=== PATIENT | male | born 1975 | race American Indian/Alaskan Native ===

== ENCOUNTER 2020-09-19 17:20 | Inpatient (IN) | payer OTHER ==
[2020-09-19 17:58] LABS: Basophils # (Auto) 0.1 K/mm3 (0.0-0.1); Basophils % (Auto) 0.7 % (0.0-1.8); Hematocrit 49.7 % (35.5-45.6); Hemoglobin 15.8 gm/dl (11.8-15.2); Lymphocytes # (Auto) 1.2 K/mm3 (1.2-5.4); Lymphocytes % (Auto) 11.4 % (13.4-35.0); Mean Corpuscular HGB Conc 32 % (32-34); Monocytes # (Auto) 0.4 K/mm3 (0.0-0.8); Monocytes % (Auto) 3.5 % (0.0-7.3); Red Blood Count 7.92 M/mm3 (3.65-5.03); Red Cell Distribution Width 16.5 % (13.2-15.2)
--- NOTE | 2020-09-19 17:58 | Emergency Department Report ---
Blank Doc - Documentation Documentation: This is a 45-year-old male that presents with generalized weakness, increased thirst and urination. 1- This initial assessment/diagnostic orders/clinical plan/ treatment(s) is/are subject to change based on pt's health status, clinical progression and re- assessment by fellow clinical providers in the ED. Further treatment and workup at subsequent clinical provers discretion. Patient/guardians urged not to elope from ED as their condition may be serious if not clinically assessed and managed. 2-EKG due to tachycardia 3-labs 4-UA
[2020-09-19 18:03] LABS: Mean Corpuscular Volume 63 fl (84-94)
[2020-09-19 18:15] LABS: Albumin 5.4 g/dL (3.9-5); Calcium 11.1 mg/dL (8.4-10.2)
[2020-09-19 18:43] LABS: Platelet Count 255 K/mm3 (140-440)
[2020-09-19] MEDS ORDERED: SODIUM CHLORIDE 0.9% 1000 ML 1,000 ML IV ONE ×3 (19:56→21:55)
[2020-09-19] MEDS ORDERED: INSULIN REGULAR, HUMAN 100 UNITS/1 ML IV ONE ×2 (19:56→21:47)
--- NOTE | 2020-09-19 21:06 | Emergency Department Report ---
ED General Adult HPI - General Chief complaint: Hyperglycemia Stated complaint: BLOOD SUGAR PROBLEM Time Seen by Provider: 09/19/20 17:42 Source: patient Mode of arrival: Ambulatory Limitations: No Limitations - History of Present Illness Initial comments: 45-year male with a past medical history of hypertension and ADHD presents to the hospital hyperglycemia and new onset diabetes. Patient states for the last 2 to 3 weeks he has been having increased thirst, increased urination, dry mouth, and fatigue. He went to a doctor today and his sugar read high on her glucometer. Patient denies a previous diagnosis of diabetes, fever, nausea, vomiting, or abdominal pain. He has been compliant with his blood pressure medications that include amlodipine, a diuretic that starts with "C", Adderall, and Wellbutrin Pt shared with hospitalist that he has been on metformin in past but discontinued due to a recall that he saw on TV. I reinterviewed patient and hestates that he was put on Metformin for "prediabetes". He stopped taking the medication 3 months ago Severity scale (0 -10): 0 - Related Data Allergies Allergy/AdvReac Type Severity Reaction Status Date / Time No Known Allergies Allergy Unverified 09/19/20 17:38 ED Review of Systems ROS: Stated complaint: BLOOD SUGAR PROBLEM Other details as noted in HPI Comment: All other systems reviewed and negative ED Past Medical Hx - Past Medical History Previous Medical History?: Yes Hx Hypertension: Yes Additional medical history: adhd - Surgical History Past Surgical History?: No - Social History Smoking Status: Never Smoker Substance Use Type: None ED Physical Exam - General Limitations: No Limitations - Other Other exam information: General: No acute distress Head: Atraumatic Eyes: normal appearance Neck: Normal appearance, no midline tenderness Chest: Clear to auscultation bilaterally CV: Tachycardic regular rate Abdomen: Soft, normal bowel sounds, nontender, nondistended, no rebound or guarding Back: Normal inspection Extremity: Normal inspection, full range of motion Neuro: Alert O x 3, no facial asymmetry, speech clear, no gross motor sensory deficit Psych: Appropriate behavior Skin: No rash ED Course Vital Signs 09/19/20 09/19/20 09/19/20 17:38 20:08 20:15 Temperature 98.8 F Pulse Rate 122 H 109 H Respiratory 20 25 H Rate Blood Pressure 151/107 Blood Pressure [Right] O2 Sat by Pulse 99 98 99 Oximetry 09/19/20 09/19/20 09/19/20 20:20 20:22 20:31 Temperature 98.1 F Pulse Rate 109 H 109 H Respiratory 26 H 26 H 22 Rate Blood Pressure 156/91 Blood Pressure 156/91 [Right] O2 Sat by Pulse 99 99 96 Oximetry 09/19/20 09/19/20 09/19/20 20:45 21:01 21:15 Temperature Pulse Rate 107 H 105 H 103 H Respiratory 26 H 19 30 H Rate Blood Pressure 156/91 152/79 152/79 Blood Pressure [Right] O2 Sat by Pulse 98 97 96 Oximetry 09/19/20 09/19/20 21:31 21:42 Temperature Pulse Rate 106 H 103 H Respiratory 12 30 H Rate Blood Pressure 123/76 Blood Pressure 152/79 [Right] O2 Sat by Pulse 99 96 Oximetry ED Medical Decision Making - Lab Data Result diagrams: 09/19/20 17:45 09/19/20 17:45 Lab Results 09/19/20 09/19/20 09/19/20 Range/Units 17:39 17:45 17:45 WBC 10.5 (4.5-11.0) K/mm3 RBC 7.92 H (3.65-5.03) M/mm3 Hgb 15.8 H (11.8-15.2) gm/dl Hct 49.7 H (35.5-45.6) % MCV 63 L (84-94) fl MCH 20 L (28-32) pg MCHC 32 (32-34) % RDW 16.5 H (13.2-15.2) % Plt Count 255 (140-440) K/mm3 Lymph % (Auto) 11.4 L (13.4-35.0) % [place] % (Auto) 3.5 (0.0-7.3) % Eos % (Auto) 0.0 (0.0-4.3) % Baso % (Auto) 0.7 (0.0-1.8) % Lymph # (Auto) 1.2 (1.2-5.4) K/mm3 [place] # (Auto) 0.4 (0.0-0.8) K/mm3 Eos # (Auto) 0.0 (0.0-0.4) K/mm3 Baso # (Auto) 0.1 (0.0-0.1) K/mm3 Seg Neutrophils % 84.4 H (40.0-70.0) % Seg Neutrophils # 8.9 H (1.8-7.7) K/mm3 VBG pH (7.320-7.420) Sodium 134 L (137-145) mmol/L Potassium 5.3 H (3.6-5.0) mmol/L Chloride 88.7 L (98-107) mmol/L Carbon Dioxide 17 L (22-30) mmol/L Anion Gap 34 mmol/L BUN 31 H (9-20) mg/dL Creatinine 1.7 H (0.8-1.3) mg/dL Estimated GFR 44 ml/min BUN/Creatinine Ratio 18 % Glucose 912 H* (75-100) mg/dL POC Glucose > 600 H (70-105) mg/dL Calcium 11.1 H (8.4-10.2) mg/dL Total Bilirubin 1.30 H (0.1-1.2) mg/dL AST 19 (5-40) units/L ALT 52 (7-56) units/L Alkaline Phosphatase 145 H (35-129) units/L Total Protein 8.7 H (6.3-8.2) g/dL Albumin 5.4 H (3.9-5) g/dL Albumin/Globulin Ratio 1.6 % Urine Color (Yellow) Urine Turbidity (Clear) Urine pH (5.0-7.0) Ur Specific [place] (1.003-1.030) Urine Protein (Negative) mg/dL Urine Glucose (UA) (Negative) mg/dL Urine Ketones (Negative) mg/dL Urine Blood (Negative) Urine Nitrite (Negative) Urine Bilirubin (Negative) Urine Urobilinogen (<2.0) mg/dL Ur Leukocyte Esterase (Negative) Urine WBC (Auto) (0.0-6.0) /HPF Urine RBC (Auto) (0.0-6.0) /HPF 09/19/20 09/19/20 Range/Units 17:45 Unknown WBC (4.5-11.0) K/mm3 RBC (3.65-5.03) M/mm3 Hgb (11.8-15.2) gm/dl Hct (35.5-45.6) % MCV (84-94) fl MCH (28-32) pg MCHC (32-34) % RDW (13.2-15.2) % Plt Count (140-440) K/mm3 Lymph % (Auto) (13.4-35.0) % [place] % (Auto) (0.0-7.3) % Eos % (Auto) (0.0-4.3) % Baso % (Auto) (0.0-1.8) % Lymph # (Auto) (1.2-5.4) K/mm3 [place] # (Auto) (0.0-0.8) K/mm3 Eos # (Auto) (0.0-0.4) K/mm3 Baso # (Auto) (0.0-0.1) K/mm3 Seg Neutrophils % (40.0-70.0) % Seg Neutrophils # (1.8-7.7) K/mm3 VBG pH 7.347 (7.320-7.420) Sodium (137-145) mmol/L Potassium (3.6-5.0) mmol/L Chloride (98-107) mmol/L Carbon Dioxide (22-30) mmol/L Anion Gap mmol/L BUN (9-20) mg/dL Creatinine (0.8-1.3) mg/dL Estimated GFR ml/min BUN/Creatinine Ratio % Glucose (75-100) mg/dL POC Glucose (70-105) mg/dL Calcium (8.4-10.2) mg/dL Total Bilirubin (0.1-1.2) mg/dL AST (5-40) units/L ALT (7-56) units/L Alkaline Phosphatase (35-129) units/L Total Protein (6.3-8.2) g/dL Albumin (3.9-5) g/dL Albumin/Globulin Ratio % Urine Color Straw (Yellow) Urine Turbidity Clear (Clear) Urine pH 5.0 (5.0-7.0) Ur Specific [place] 1.025 (1.003-1.030) Urine Protein <15 mg/dl (Negative) mg/dL Urine Glucose (UA) >=500 (Negative) mg/dL Urine Ketones 20 (Negative) mg/dL Urine Blood Neg (Negative) Urine Nitrite Neg (Negative) Urine Bilirubin Neg (Negative) Urine Urobilinogen < 2.0 (<2.0) mg/dL Ur Leukocyte Esterase Neg (Negative) Urine WBC (Auto) 1.0 (0.0-6.0) /HPF Urine RBC (Auto) 1.0 (0.0-6.0) /HPF - EKG Data -: EKG Interpreted by Me EKG shows normal: sinus rhythm, intervals (qtc 509) Rate: tachycardia (109) - Medical Decision Making 45-year-old male presents to the hospital with hyperglycemia and mild DKA. Patient has been noncompliant with his Metformin. Patient to ED with normal saline, insulin bolus with subsequent insulin drip. Patient also has renal sufficiency with no previous creatinine for comparison. Patient will be admitted to the hospital service for further treatment. Critical Care Time: Yes Critical care time in (mins) excluding proc time.: 35 Critical care attestation.: If time is entered above; I have spent that time in minutes in the direct care of this critically ill patient, excluding procedure time. ED Disposition Clinical Impression: Uncontrolled diabetes mellitus, DKA (diabetic ketoacidoses), Noncompliance with medication regimen, Chronic hypertension, Renal insufficiency Disposition: -09 OP ADMIT IP TO THIS HOSP Is pt being admited?: Yes Condition: Stable Instructions: Diabetes Mellitus Type 2 in Adults (ED), Diabetic Ketoacidosis (ED), Hypertension (ED) Time of Disposition: 22:40 (Dr Orellana/hospitalist)
[2020-09-19 21:45] LABS: Bilirubin,Urine NEG (Negative); Blood,Urine NEG (Negative); Color,Urine Straw (Yellow); Protein,Urine <15 mg/dL mg/dL (Negative); Urobilinogen,Urine < 2.0 mg/dL (<2.0)
[2020-09-19] MEDS ORDERED: DEXTROSE 50% IN WATER (25GM) 50 ML SYRINGE IV PRN (21:55)
[2020-09-19] MEDS: INSULIN REGULAR, HUMAN 100 UNITS in SODIUM CHLORIDE 0.9% 99 ML IV SCH (22:42)
[2020-09-19] MEDS ORDERED: ONDANSETRON 4 MG/2 ML INJ IV PRN (22:43)
[2020-09-19] MEDS ORDERED: MORPHINE 2 MG/1 ML INJ IV PRN (22:43)
[2020-09-19] MEDS ORDERED: SODIUM CHLORIDE 0.9% 1000 ML 1,000 ML IV SCH (22:45)
--- NOTE | 2020-09-19 22:54 | History and Physical Report ---
History of Present Illness Date of examination: 09/19/20 Date of admission: 09/19/2020 Chief complaint: Elevated Blood Glucose History of present illness: 5-year-old -[place] male with known history of hypertension and ADHD presents to the emergency room today complaining of elevated blood glucose and new onset diabetes mellitus. Indicates that he has been having increased thirst, increased frequency of urination, dry mouth and fatigue. He was seen by physician earlier in the day and his sugar was reading high on the glucometer. He has been diagnosed with borderline diabetes in the past and had been on Metformin at some point but discontinued taking the medication about 3 months ago because he felt the medication was recalled. He denies any nausea vomiting, no diarrhea, no chest pain or shortness of breath, no fever or chills, no headache or dizziness. Work-up in the emergency room today blood glucose was in the 900s. Patient also had anion gap. He was subsequently placed on IV fluid and insulin drip. Past History Past Medical History: hypertension, other (ADHD) Past Surgical History: No surgical history Social history: alcohol abuse (Occasional Alcohol intake) Family history: no significant family history Medications and Allergies Allergies Allergy/AdvReac Type Severity Reaction Status Date / Time No Known Allergies Allergy Unverified 09/19/20 17:38 Active Meds: Active Medications Dextrose (Dextrose 50% In Water (25gm) 50 Ml Syringe) 0 ml IV Q30MIN PRN; Protocol PRN Reason: Hypoglycemia Heparin Sodium (Porcine) (Heparin 5,000 Unit/1 Ml Vial) 5,000 unit SUB-Q Q8HR YA Insulin Human Regular 100 (units/ Sodium Chloride) 100 mls @ 1 mls/hr IV TITR YA; Protocol Sodium Chloride (Nacl 0.9% 1000 Ml) 1,000 mls @ 999 mls/hr IV BOLUS ONE Stop: 09/19/20 22:55 Sodium Chloride (Nacl 0.9% 1000 Ml) 1,000 mls @ 150 mls/hr IV DIRECT YA Potassium Chloride/Dextrose/Sod Cl (D5w/0.45% Nacl/Kcl 20 Meq) 20 meq in 1,000 mls @ 125 mls/hr IV DIRECT YA Morphine Sulfate (Morphine 2 Mg/1 Ml Inj) 2 mg IV Q4H PRN PRN Reason: Pain, Moderate (4-6) Ondansetron HCl (Ondansetron 4 Mg/2 Ml Inj) 4 mg IV Q8H PRN PRN Reason: Nausea And Vomiting Sodium Chloride (Sodium Chloride 0.9% 10 Ml Flush Syringe) 10 ml IV BID YA Sodium Chloride (Sodium Chloride 0.9% 10 Ml Flush Syringe) 10 ml IV PRN PRN PRN Reason: LINE FLUSH Review of Systems Constitutional: no fever, no chills Ears, nose, mouth and throat: no nasal congestion, no sore throat Cardiovascular: no chest pain, no palpitations Respiratory: no cough, no shortness of breath Gastrointestinal: no abdominal pain, no nausea, no vomiting, no diarrhea Genitourinary Male: no dysuria, no hematuria, no nocturia Musculoskeletal: no neck pain, no low back pain Integumentary: no rash, no pruritis Neurological: no headaches, no confusion Psychiatric: no anxiety, no depression Exam - Constitutional Vitals: Temp Pulse Resp BP Pulse Ox 98.1 F 103 H 30 H 152/79 96 09/19/20 20:20 09/19/20 21:42 09/19/20 21:42 09/19/20 21:42 09/19/20 21:42 General appearance: Present: no acute distress, well-nourished - EENT Eyes: Present: PERRL, EOM intact. Absent: scleral icterus ENT: hearing intact, clear oral mucosa, dentition normal - Neck Neck: Present: supple, normal ROM - Respiratory Respiratory effort: normal Respiratory: bilateral: CTA - Cardiovascular Rhythm: regular Heart Sounds: Present: S1 & S2. Absent: gallop, systolic murmur, diastolic murmur, rub, click - Extremities Extremities: no ischemia, pulses intact, pulses symmetrical, No edema, normal temperature, normal color, Full ROM Peripheral Pulses: within normal limits - Abdominal General gastrointestinal: Present: soft, non-tender, non-distended, normal bowel sounds. Absent: mass - Integumentary Integumentary: Present: clear, warm, dry. Absent: rash - Musculoskeletal Musculoskeletal: strength equal bilaterally - Psychiatric Psychiatric: appropriate mood/affect, intact judgment & insight, memory intact, cooperative - Neurologic Neurologic: CNII-XII intact, no focal deficits, moves all extremities Results - Labs CBC & Chem 7: 09/19/20 17:45 09/20/20 01:22 Labs: Abnormal lab results 09/19/20 09/19/20 09/19/20 Range/Units 17:39 17:45 17:45 RBC 7.92 H (3.65-5.03) M/mm3 Hgb 15.8 H (11.8-15.2) gm/dl Hct 49.7 H (35.5-45.6) % MCV 63 L (84-94) fl MCH 20 L (28-32) pg RDW 16.5 H (13.2-15.2) % Lymph % (Auto) 11.4 L (13.4-35.0) % Seg Neutrophils % 84.4 H (40.0-70.0) % Seg Neutrophils # 8.9 H (1.8-7.7) K/mm3 Sodium 134 L (137-145) mmol/L Potassium 5.3 H (3.6-5.0) mmol/L Chloride 88.7 L (98-107) mmol/L Carbon Dioxide 17 L (22-30) mmol/L BUN 31 H (9-20) mg/dL Creatinine 1.7 H (0.8-1.3) mg/dL Glucose 912 H* (75-100) mg/dL POC Glucose > 600 H (70-105) mg/dL Calcium 11.1 H (8.4-10.2) mg/dL Total Bilirubin 1.30 H (0.1-1.2) mg/dL Alkaline Phosphatase 145 H (35-129) units/L Total Protein 8.7 H (6.3-8.2) g/dL Albumin 5.4 H (3.9-5) g/dL Assessment and Plan - Patient Problems (1) DKA (diabetic ketoacidoses) Current Visit: Yes Status: Acute Plan to address problem: Patient admitted into the intensive care unit and placed on insulin drip and IV fluid according to protocol. We will monitor Accu-Cheks and chemistry closely. Patient will be given diabetic education. We will check hemoglobin A1c. (2) Hypertension Current Visit: Yes Status: Acute Plan to address problem: We will resume routine home medications once reconciled and monitor vital signs closely. Blood pressure stable meanwhile. (3) Renal insufficiency Current Visit: Yes Status: Acute Plan to address problem: Baseline creatinine unknown. We will continue IV fluid and also monitor BUN and creatinine. Consult placed to nephrology for evaluation. (4) DVT prophylaxis Current Visit: Yes Status: Acute Plan to address problem: Patient placed on subcutaneous heparin. (5) Full code status Current Visit: Yes Status: Acute Plan to address problem: Patient is a full code.
[2020-09-19] MEDS ORDERED: D5W/0.45% NACL/KCL 20 MEQ 20 MEQ/1,000 ML BAG IV SCH (23:00)
[2020-09-19 23:51] LABS: Calcium 9.9 mg/dL (8.4-10.2)
[2020-09-20 02:01] LABS: Chol/HDL Ratio 5.29 %
[2020-09-20 02:10] LABS: BUN/Creatinine Ratio 20; Blood Urea Nitrogen 26 mg/dL (9-20); Calcium 9.7 mg/dL (8.4-10.2); Hemolysis Index 3
[2020-09-20] MEDS: INSULIN REGULAR, HUMAN 100 UNITS in SODIUM CHLORIDE 0.9% 99 ML IV SCH ×2 (03:00→11:26)
[2020-09-20 04:54] LABS: BUN/Creatinine Ratio 18; Blood Urea Nitrogen 23 mg/dL (9-20); Calcium 9.3 mg/dL (8.4-10.2); Hemolysis Index 27
[2020-09-20] MEDS: HEPARIN 5,000 UNIT/1 ML VIAL SUB-Q SCH ×3 (06:08→22:01)
[2020-09-20 06:29] LABS: BUN/Creatinine Ratio 17; Blood Urea Nitrogen 22 mg/dL (9-20); Calcium 9.1 mg/dL (8.4-10.2); Hemolysis Index 22
[2020-09-20] MEDS ORDERED: DEXTROSE 50% IN WATER (25GM) 50 ML SYRINGE IV PRN ×2 (11:18→11:19)
--- NOTE | 2020-09-20 11:21 | Progress Note ---
Assessment and Plan Assessment and plan: DKA. Hypertension Acute kidney injury secondary to vasomotor nephropathy. DVT prophylaxis. 09/20/2020. Patient will be transition to long-acting insulin of units twice daily. Patient will be changed from D5 IV fluids to normal saline at 100 cc an hour. Acute kidney injury is improved with IV fluid hydration. Continue sliding scale regular insulin, Accu-Cheks and consistent carbohydrate diet initiated. History Interval history: No new issues overnight. Hospitalist Physical - Constitutional Vitals: Temp Pulse Resp BP Pulse Ox 98.6 F 76 22 117/66 96 09/19/20 23:05 09/20/20 08:04 09/20/20 08:00 09/20/20 08:00 09/20/20 08:00 General appearance: Present: no acute distress, well-nourished - EENT Eyes: Present: PERRL, EOM intact ENT: hearing intact, clear oral mucosa, dentition normal - Neck Neck: Present: supple, normal ROM - Respiratory Respiratory effort: normal Respiratory: bilateral: CTA - Cardiovascular Rhythm: regular Heart Sounds: Present: S1 & S2. Absent: gallop, rub - Extremities Extremities: no ischemia, No edema, Full ROM - Abdominal General gastrointestinal: soft, non-tender, non-distended, normal bowel sounds - Integumentary Integumentary: Present: clear, warm, dry - Neurologic Neurologic: CNII-XII intact, moves all extremities Results - Labs CBC & Chem 7: 09/19/20 17:45 09/20/20 06:00 Labs: Laboratory Last Values WBC 10.5 K/mm3 (4.5-11.0) 09/19/20 17:45 RBC 7.92 M/mm3 (3.65-5.03) H 09/19/20 17:45 Hgb 15.8 gm/dl (11.8-15.2) H 09/19/20 17:45 Hct 49.7 % (35.5-45.6) H 09/19/20 17:45 MCV 63 fl (84-94) L 09/19/20 17:45 MCH 20 pg (28-32) L 09/19/20 17:45 MCHC 32 % (32-34) 09/19/20 17:45 RDW 16.5 % (13.2-15.2) H 09/19/20 17:45 Plt Count 255 K/mm3 (140-440) 09/19/20 17:45 Lymph % (Auto) 11.4 % (13.4-35.0) L 09/19/20 17:45 [place] % (Auto) 3.5 % (0.0-7.3) 09/19/20 17:45 Eos % (Auto) 0.0 % (0.0-4.3) 09/19/20 17:45 Baso % (Auto) 0.7 % (0.0-1.8) 09/19/20 17:45 Lymph # (Auto) 1.2 K/mm3 (1.2-5.4) 09/19/20 17:45 [place] # (Auto) 0.4 K/mm3 (0.0-0.8) 09/19/20 17:45 Eos # (Auto) 0.0 K/mm3 (0.0-0.4) 09/19/20 17:45 Baso # (Auto) 0.1 K/mm3 (0.0-0.1) 09/19/20 17:45 Seg Neutrophils % 84.4 % (40.0-70.0) H 09/19/20 17:45 Seg Neutrophils # 8.9 K/mm3 (1.8-7.7) H 09/19/20 17:45 VBG pH 7.347 (7.320-7.420) 09/19/20 17:45 Sodium 145 mmol/L (137-145) 09/20/20 06:00 Potassium 4.4 mmol/L (3.6-5.0) 09/20/20 06:00 Chloride 107.9 mmol/L (98-107) H 09/20/20 06:00 Carbon Dioxide 31 mmol/L (22-30) H 09/20/20 06:00 Anion Gap 11 mmol/L 09/20/20 06:00 BUN 22 mg/dL (9-20) H 09/20/20 06:00 Creatinine 1.3 mg/dL (0.8-1.3) 09/20/20 06:00 Estimated GFR > 60 ml/min 09/20/20 06:00 BUN/Creatinine Ratio 17 % 09/20/20 06:00 Glucose 256 mg/dL (75-100) H 09/20/20 06:00 POC Glucose 248 mg/dL (70-105) H 09/20/20 08:23 Hemoglobin A1c 15.0 % (4-6) H 09/19/20 17:45 Calcium 9.1 mg/dL (8.4-10.2) 09/20/20 06:00 Phosphorus 5.50 mg/dL (2.5-4.5) H 09/19/20 22:51 Magnesium 2.80 mg/dL (1.7-2.3) H 09/19/20 22:51 Total Bilirubin 1.30 mg/dL (0.1-1.2) H 09/19/20 17:45 AST 19 units/L (5-40) 09/19/20 17:45 ALT 52 units/L (7-56) 09/19/20 17:45 Alkaline Phosphatase 145 units/L (35-129) H 09/19/20 17:45 Total Protein 8.7 g/dL (6.3-8.2) H 09/19/20 17:45 Albumin 5.4 g/dL (3.9-5) H 09/19/20 17:45 Albumin/Globulin Ratio 1.6 % 09/19/20 17:45 Triglycerides 287 mg/dL (2-149) H 09/19/20 22:51 Cholesterol 217 mg/dL (50-199) H 09/19/20 22:51 LDL Cholesterol Direct 147 mg/dL (50-130) H 09/19/20 22:51 HDL Cholesterol 41 mg/dL (40-59) 09/19/20 22:51 Cholesterol/HDL Ratio 5.29 % 09/19/20 22:51 Urine Color Straw (Yellow) 09/19/20 Unknown Urine Turbidity Clear (Clear) 09/19/20 Unknown Urine pH 5.0 (5.0-7.0) 09/19/20 Unknown Ur Specific [place] 1.025 (1.003-1.030) 09/19/20 Unknown Urine Protein <15 mg/dl mg/dL (Negative) 09/19/20 Unknown Urine Glucose (UA) >=500 mg/dL (Negative) 09/19/20 Unknown Urine Ketones 20 mg/dL (Negative) 09/19/20 Unknown Urine Blood Neg (Negative) 09/19/20 Unknown Urine Nitrite Neg (Negative) 09/19/20 Unknown Urine Bilirubin Neg (Negative) 09/19/20 Unknown Urine Urobilinogen < 2.0 mg/dL (<2.0) 09/19/20 Unknown Ur Leukocyte Esterase Neg (Negative) 09/19/20 Unknown Urine WBC (Auto) 1.0 /HPF (0.0-6.0) 09/19/20 Unknown Urine RBC (Auto) 1.0 /HPF (0.0-6.0) 09/19/20 Unknown Mcqueen/IV: IV Catheter Type [Left Forearm Peripheral IV ] Active Medications - Current Medications Current Medications: Generic Name Dose Route Start Last Admin Trade Name Freq PRN Reason Stop Dose Admin Dextrose 0 ml 09/19/20 21:55 Dextrose 50% In Water (25gm) 50 Ml Syringe IV Q30MIN PRN Hypoglycemia Protocol Heparin Sodium (Porcine) 5,000 unit 09/20/20 06:00 09/20/20 06:08 Heparin 5,000 Unit/1 Ml Vial SUB-Q Not Given Q8HR YA Insulin Human Regular 100 100 mls @ 1 mls/hr 09/19/20 22:00 09/20/20 10:30 units/ Sodium Chloride IV 7 units/hr TITR YA 7 mls/hr Titration Protocol 1 UNITS/HR Sodium Chloride 1,000 mls @ 150 mls/hr 09/19/20 22:45 09/19/20 23:50 Nacl 0.9% 1000 Ml IV 150 mls/hr DIRECT YA Administration Potassium Chloride/Dextrose/Sod Cl 20 meq in 1,000 mls @ 125 mls/hr 09/19/20 23:00 09/20/20 04:22 D5w/0.45% Nacl/Kcl 20 Meq IV 125 mls/hr DIRECT YA Administration Morphine Sulfate 2 mg 09/19/20 22:43 Morphine 2 Mg/1 Ml Inj IV Q4H PRN Pain, Moderate (4-6) Ondansetron HCl 4 mg 09/19/20 22:43 Ondansetron 4 Mg/2 Ml Inj IV Q8H PRN Nausea And Vomiting Sodium Chloride 10 ml 09/20/20 10:00 09/20/20 10:59 Sodium Chloride 0.9% 10 Ml Flush Syringe IV 10 ml BID YA Administration Sodium Chloride 10 ml 09/19/20 22:43 Sodium Chloride 0.9% 10 Ml Flush Syringe IV PRN PRN LINE FLUSH Nutrition/Malnutrition Assess - Dietary Evaluation Nutrition/Malnutrition Findings: Nutrition Notes Start: 09/20/20 11:00 Freq: Status: Active Protocol: Document 09/20/20 11:00 EN (Rec: 09/20/20 11:01 EN [id number]) Co-Sign 09/20/20 11:00 MK Nutrition Notes Need for Assessment generated from: MD Order,Education Initial or Follow up Brief Note Current Diagnosis Diabetes,Hypertension Other Pertinent Diagnosis DKA, Renal insufficiency Current Diet NPO Subjective/Other Information MD order for diet education and nutrition recommendations. Pt has new onset DM. Pt on hold in ED. Nutrition Intervention Anticipated Discharge Needs: Cardiac/Consistent CHO Follow-Up By: 09/23/20 Additional Comments F/u for assessment and DM diet education
--- NOTE | 2020-09-20 12:30 | Consultation ---
History of Present Illness Consult date: 09/20/20 Requesting physician: MILAGROS CASITLLO Reason for consult: other (Hyperglycemia on insulin) History of present illness: 5-year-old -[place] male with known history of hypertension and ADHD presents to the emergency room today complaining of elevated blood glucose and new onset diabetes mellitus. Indicates that he has been having increased thirst, increased frequency of urination, dry mouth and fatigue. He was seen by physician earlier in the day and his sugar was reading high on the glucometer. He has been diagnosed with borderline diabetes in the past and had been on Metformin at some point but discontinued taking the medication about 3 months ago because he felt the medication was recalled. He denies any nausea vomiting, no diarrhea, no chest pain or shortness of breath, no fever or chills, no headache or dizziness. Work-up in the emergency room today blood glucose was in the 900s. Patient also had anion gap. He was subsequently placed on IV fluid and insulin drip A critical care consult was placed for critical drip Prior to admission to the ICU, insulin infusion had been discontinued and patient downgraded to telemetry. Continue with all current care Past History Past Medical History: hypertension, other (ADHD) Past Surgical History: No surgical history Social history: alcohol abuse (Occasional Alcohol intake) Family history: no significant family history Medications and Allergies Allergies Allergy/AdvReac Type Severity Reaction Status Date / Time No Known Allergies Allergy Unverified 09/19/20 17:38 Home Medications Medication Instructions Recorded Confirmed Last Taken Type Chlorthalidone [Thalitone] 25 mg PO QDAY 09/20/20 09/20/20 2 Days Ago History ~09/18/20 Dextroamphetamine/Amphetamine 10 mg PO BID 09/20/20 09/20/20 2 Days Ago History [Dextroamp-Amphetamin 10 mg Tab] ~09/18/20 Omeprazole 10 mg PO BID 09/20/20 09/20/20 2 Days Ago History ~09/18/20 Insulin NPH/Regular [NovoLIN 70/30] 20 unit SUB-Q BIDDIAB 30 Days 09/21/20 Unknown Rx units amLODIPine 5 mg PO DAILY #30 09/21/20 Unknown Rx buPROPion [Wellbutrin] 75 mg PO BID #60 09/21/20 Unknown Rx metFORMIN [Glucophage] 500 mg PO BID #60 tablet 09/21/20 Unknown Rx Active Meds: Active Medications Dextrose (Dextrose 50% In Water (25gm) 50 Ml Syringe) 50 ml IV Q30MIN PRN; Protocol PRN Reason: Hypoglycemia Heparin Sodium (Porcine) (Heparin 5,000 Unit/1 Ml Vial) 5,000 unit SUB-Q Q8HR [facility] Last Admin: 09/20/20 06:08 Dose: Not Given Documented by: Sodium Chloride (Nacl 0.9% 1000 Ml) 1,000 mls @ 100 mls/hr IV DIRECT YA Insulin Human Isoph/Insulin Regular (Insulin Nph/Regular 70/30 Inj) 15 unit SUB-Q BIDDIAB YA Insulin Human Regular (Insulin Regular, Human 100 Units/1 Ml) 0 units SUB-Q ACHS YA; Protocol Morphine Sulfate (Morphine 2 Mg/1 Ml Inj) 2 mg IV Q4H PRN PRN Reason: Pain, Moderate (4-6) Ondansetron HCl (Ondansetron 4 Mg/2 Ml Inj) 4 mg IV Q8H PRN PRN Reason: Nausea And Vomiting Sodium Chloride (Sodium Chloride 0.9% 10 Ml Flush Syringe) 10 ml IV BID [facility] Last Admin: 09/20/20 10:59 Dose: 10 ml Documented by: Sodium Chloride (Sodium Chloride 0.9% 10 Ml Flush Syringe) 10 ml IV PRN PRN PRN Reason: LINE FLUSH Physical Examination Vital signs: Vital Signs Temp Pulse Resp BP Pulse Ox 98.8 F 122 H 20 151/107 99 09/19/20 17:38 09/19/20 17:38 09/19/20 17:38 09/19/20 17:38 09/19/20 17:38 General appearance: Present: no acute distress, well-nourished - EENT Eyes: Present: PERRL, EOM intact. Absent: scleral icterus ENT: hearing intact, clear oral mucosa, dentition normal - Neck Neck: Present: supple, normal ROM - Respiratory Respiratory effort: normal Respiratory: bilateral: CTA - Cardiovascular Rhythm: regular Heart Sounds: Present: S1 & S2. Absent: gallop, systolic murmur, diastolic murmur, rub, click - Extremities Extremities: no ischemia, pulses intact, pulses symmetrical, No edema, normal temperature, normal color, Full ROM Peripheral Pulses: within normal limits - Abdominal General gastrointestinal: Present: soft, non-tender, non-distended, normal bowel sounds. Absent: mass - Integumentary Integumentary: Present: clear, warm, dry. Absent: rash - Musculoskeletal Musculoskeletal: strength equal bilaterally - Psychiatric Psychiatric: appropriate mood/affect, intact judgment & insight, memory intact, cooperative - Neurologic Neurologic: CNII-XII intact, no focal deficits, moves all extremities Results - Laboratory Findings CBC and BMP: 09/19/20 17:45 09/21/20 08:48 Abnormal lab findings: Abnormal Labs 09/19/20 09/19/20 09/19/20 17:39 17:45 17:45 RBC 7.92 H Hgb 15.8 H Hct 49.7 H MCV 63 L MCH 20 L RDW 16.5 H Lymph % (Auto) 11.4 L Seg Neutrophils % 84.4 H Seg Neutrophils # 8.9 H Sodium 134 L Potassium 5.3 H Chloride 88.7 L Carbon Dioxide 17 L BUN 31 H Creatinine 1.7 H Glucose 912 H* POC Glucose > 600 H Hemoglobin A1c Calcium 11.1 H Phosphorus Magnesium Total Bilirubin 1.30 H Alkaline Phosphatase 145 H Total Protein 8.7 H Albumin 5.4 H Triglycerides Cholesterol LDL Cholesterol Direct 09/19/20 09/19/20 09/19/20 17:45 22:51 22:51 RBC Hgb Hct MCV MCH RDW Lymph % (Auto) Seg Neutrophils % Seg Neutrophils # Sodium Potassium 5.8 H Chloride 97.6 L Carbon Dioxide BUN 29 H Creatinine 1.6 H Glucose 568 H* POC Glucose Hemoglobin A1c 15.0 H Calcium Phosphorus 5.50 H Magnesium 2.80 H Total Bilirubin Alkaline Phosphatase Total Protein Albumin Triglycerides Cholesterol LDL Cholesterol Direct 09/19/20 09/19/20 09/20/20 22:51 23:38 00:53 RBC Hgb Hct MCV MCH RDW Lymph % (Auto) Seg Neutrophils % Seg Neutrophils # Sodium Potassium Chloride Carbon Dioxide BUN Creatinine Glucose POC Glucose 419 H 408 H Hemoglobin A1c Calcium Phosphorus Magnesium Total Bilirubin Alkaline Phosphatase Total Protein Albumin Triglycerides 287 H Cholesterol 217 H LDL Cholesterol Direct 147 H 09/20/20 09/20/20 09/20/20 01:22 02:29 03:53 RBC Hgb Hct MCV MCH RDW Lymph % (Auto) Seg Neutrophils % Seg Neutrophils # Sodium Potassium Chloride Carbon Dioxide BUN 26 H Creatinine Glucose 382 H POC Glucose 323 H 264 H Hemoglobin A1c Calcium Phosphorus Magnesium Total Bilirubin Alkaline Phosphatase Total Protein Albumin Triglycerides Cholesterol LDL Cholesterol Direct 09/20/20 09/20/20 09/20/20 04:06 05:07 06:00 RBC Hgb Hct MCV MCH RDW Lymph % (Auto) Seg Neutrophils % Seg Neutrophils # Sodium 146 H Potassium Chloride 109.0 H 107.9 H Carbon Dioxide 31 H BUN 23 H 22 H Creatinine Glucose 273 H 256 H POC Glucose 219 H Hemoglobin A1c Calcium Phosphorus Magnesium Total Bilirubin Alkaline Phosphatase Total Protein Albumin Triglycerides Cholesterol LDL Cholesterol Direct 09/20/20 09/20/20 09/20/20 06:11 08:23 09:41 RBC Hgb Hct MCV MCH RDW Lymph % (Auto) Seg Neutrophils % Seg Neutrophils # Sodium Potassium Chloride Carbon Dioxide BUN Creatinine Glucose POC Glucose 232 H 248 H 265 H Hemoglobin A1c Calcium Phosphorus Magnesium Total Bilirubin Alkaline Phosphatase Total Protein Albumin Triglycerides Cholesterol LDL Cholesterol Direct 09/20/20 11:08 RBC Hgb Hct MCV MCH RDW Lymph % (Auto) Seg Neutrophils % Seg Neutrophils # Sodium Potassium Chloride Carbon Dioxide BUN Creatinine Glucose POC Glucose 210 H Hemoglobin A1c Calcium Phosphorus Magnesium Total Bilirubin Alkaline Phosphatase Total Protein Albumin Triglycerides Cholesterol LDL Cholesterol Direct Assessment and Plan DKA Hypertension Acute kidney injury secondary to vasomotor nephropathy. DVT prophylaxis. 09/20/2020. Patient will be transition to long-acting insulin of units twice daily. Patient will be changed from D5 IV fluids to normal saline at 100 cc an hour. Acute kidney injury is improved with IV fluid hydration. Continue sliding scale regular insulin, Accu-Cheks and consistent carbohydrate diet initiated.
[2020-09-20] MEDS: INSULIN REGULAR, HUMAN 100 UNITS/1 ML SUB-Q SCH ×3 (13:23→22:01)
[2020-09-20] MEDS: INSULIN NPH/REGULAR 70/30 INJ SUB-Q SCH ×4 (13:40→17:56)
--- NOTE | 2020-09-20 20:28 | Consultation ---
History of Present Illness - Reason for Consult Consult date: 09/20/20 acute renal failure - History of Present Illness This is a 45-year-old man with history of hypertension and prediabetes who noted uncontrolled hyperglycemia upon check using glucometer and presented to the emergency department. Upon presentation he was noted to have severe hyperglycemia, hyperkalemia and acute kidney injury and was subsequently admitted for further workup. Nephrology was consulted for hyperkalemia and acute kidney injury. He notes polydipsia, polyuria and fatigue. Past History Past Medical History: hypertension, other (ADHD) Past Surgical History: No surgical history Social history: alcohol abuse (Occasional Alcohol intake) Family history: no significant family history Medications and Allergies Allergies Allergy/AdvReac Type Severity Reaction Status Date / Time No Known Allergies Allergy Unverified 09/19/20 17:38 Home Medications Medication Instructions Recorded Confirmed Last Taken Type Chlorthalidone [Thalitone] 25 mg PO QDAY 09/20/20 09/20/20 2 Days Ago History ~09/18/20 Dextroamphetamine/Amphetamine 10 mg PO BID 09/20/20 09/20/20 2 Days Ago History [Dextroamp-Amphetamin 10 mg Tab] ~09/18/20 Omeprazole 10 mg PO BID 09/20/20 09/20/20 2 Days Ago History ~09/18/20 amLODIPine [Norvasc] 5 mg PO DAILY 09/20/20 09/20/20 2 Days Ago History ~09/18/20 buPROPion [Wellbutrin] 75 mg PO BID 09/20/20 09/20/20 2 Days Ago History ~09/18/20 Active Meds: Active Medications Dextrose (Dextrose 50% In Water (25gm) 50 Ml Syringe) 50 ml IV Q30MIN PRN; Protocol PRN Reason: Hypoglycemia Heparin Sodium (Porcine) (Heparin 5,000 Unit/1 Ml Vial) 5,000 unit SUB-Q Q8HR [facility] Last Admin: 09/20/20 14:59 Dose: 5,000 unit Documented by: Sodium Chloride (Nacl 0.9% 1000 Ml) 1,000 mls @ 100 mls/hr IV DIRECT YA Insulin Human Isoph/Insulin Regular (Insulin Nph/Regular 70/30 Inj) 15 unit SUB-Q BIDDIAB [facility] Last Admin: 09/20/20 17:56 Dose: 15 unit Documented by: Insulin Human Regular (Insulin Regular, Human 100 Units/1 Ml) 0 units SUB-Q ACHS [facility]; Protocol Last Admin: 09/20/20 17:02 Dose: 1 units Documented by: Morphine Sulfate (Morphine 2 Mg/1 Ml Inj) 2 mg IV Q4H PRN PRN Reason: Pain, Moderate (4-6) Ondansetron HCl (Ondansetron 4 Mg/2 Ml Inj) 4 mg IV Q8H PRN PRN Reason: Nausea And Vomiting Sodium Chloride (Sodium Chloride 0.9% 10 Ml Flush Syringe) 10 ml IV BID [facility] Last Admin: 09/20/20 10:59 Dose: 10 ml Documented by: Sodium Chloride (Sodium Chloride 0.9% 10 Ml Flush Syringe) 10 ml IV PRN PRN PRN Reason: LINE FLUSH Review of Systems Constitutional: fatigue, no fever, no chills Ears, nose, mouth and throat: no nasal congestion, no nasal discharge Cardiovascular: no chest pain, no palpitations Respiratory: no cough, no wheezing Gastrointestinal: no nausea, no vomiting, no diarrhea Genitourinary Male: no dysuria, no hematuria Musculoskeletal: no muscle weakness, no muscle cramps Integumentary: no rash, no pruritis Neurological: no weakness, no parathesias Psychiatric: no anxiety, no irritability Endocrine: polydipsia, polyuria Exam - Vital Signs Vital signs: Vital Signs Temp Pulse Resp BP Pulse Ox 98.8 F 122 H 20 151/107 99 09/19/20 17:38 09/19/20 17:38 09/19/20 17:38 09/19/20 17:38 09/19/20 17:38 - Physical Exam Narrative exam: General: No acute distress HEENT: Oral mucosa moist Neck: Supple, no JVD Chest: Clear to auscultation bilaterally Heart: RRR, S1 and S2, no pericardial rub Abdomen: Soft, nontender, no renal bruit Extremity: No peripheral cyanosis, edema Neurological: Alert, awake, no asterixis Dermatology: No skin rash Psych: No agitation Musculoskeletal: No joint effusion Results - Lab Results 09/19/20 17:45 09/20/20 06:00 Most recent lab results Calcium 9.1 mg/dL (8.4-10.2) 09/20/20 06:00 Phosphorus 5.50 mg/dL (2.5-4.5) H 09/19/20 22:51 Magnesium 2.80 mg/dL (1.7-2.3) H 09/19/20 22:51 Assessment and Plan Assessment Acute kidney injury Hyperkalemia Hyperglycemic hyperosmolar state Hypertension Recommendations Suspect acute kidney injury was from hypovolemia/HHS Improved with IV hydration, continue Hyperkalemia resolved with medical management. Suspect this was elevated due to hyperglycemia and hypovolemia. Resolved with IV hydration and glucose control along with medical management concerning potassium lowering therapy. No indication for dialysis Glucose control as per primary Carbohydrate restricted diet Avoid nephrotoxins Monitor input and output
[2020-09-20] MEDS: SODIUM CHLORIDE 0.9% 1000 ML 1,000 ML IV SCH (22:02)
[2020-09-21] MEDS: HEPARIN 5,000 UNIT/1 ML VIAL SUB-Q SCH (05:09)
[2020-09-21] MEDS ORDERED: INSULIN NPH/REGULAR 70/30 INJ SUB-Q SCH (08:30)
[2020-09-21] MEDS: INSULIN REGULAR, HUMAN 100 UNITS/1 ML SUB-Q SCH ×2 (09:32→12:04)
[2020-09-21] MEDS: SODIUM CHLORIDE 0.9% 1000 ML 1,000 ML IV SCH (09:34)
[2020-09-21 09:39] LABS: BUN/Creatinine Ratio 15; Blood Urea Nitrogen 17 mg/dL (9-20); Calcium 8.4 mg/dL (8.4-10.2); Hemolysis Index 3
--- NOTE | 2020-09-21 10:17 | Discharge Summary ---
Providers - Providers Date of Admission: 09/19/20 22:40 Date of discharge: 09/21/20 Attending physician: MILAGROS CASTILLO 09/19/20 22:44 Consult to Physician [CONS] Routine Comment: Spoke with Dr. Louise @ [id number] Consulting Provider: CHARLIE LOUISE Physician Instructions: Reason For Exam: DKA - on Insulin drip 09/19/20 22:57 Consult to Physician [CONS] Routine Comment: Consulting Provider: RACQUEL LEOS Physician Instructions: Reason For Exam: fficiency Primary care physician: GEOSCIENCES PROFESSOR Hospitalization Reason for admission: new DM, DKA Condition: Stable Hospital course: 45-year-old -[place] male with known history of hypertension and ADHD presents to the emergency room on the evening of 09/19/2020 complaining of elevated blood glucose and new onset diabetes mellitus. The patient indicated that he had been having increased thirst, increased frequency of urination, dry mouth and fatigue. 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 He has been diagnosed with borderline diabetes in the past and had been on Metf ormin at some point but discontinued taking the medication about 3 months ago because he felt the medication was recalled. He denied any nausea vomiting, no diarrhea, no chest pain or shortness of viki ath, no fever or chills, no headache or dizziness. Work-up in the emergency room today blood glucose was in the 900s. Patient also had anion gap. The patient was admitted with diagnosis of DKA and acute kidney injury secondary to vasomotor nephropathy. Patient's admission creatinine was 1.7 but returned to normal range of 1.1 with aggressive IV fluid hydration. In addition to the IV fluids, patient also received IV insulin. Once the anion gap resolved, patient was transitioned to long-acting insulin of 70/30 15 units twice daily. The patient's blood glucose stabilized but still remain moderately high in the low 300 range. Therefore, patient will be discharged home on 20 units of 70/30 insulin as well as 500 mg Glucophage twice daily. Patient is to follow-up with his PCP on Wednesday for further evaluation and treatment. Dedicated discharge time 35 minutes. Disposition: TO HOME OR SELFCARE Time spent for discharge: 35 - Discharge Diagnoses (1) VENU (acute kidney injury) Status: Acute (2) Vasomotor nephropathy Status: Acute (3) Chronic hypertension Status: Acute (4) DKA (diabetic ketoacidoses) Status: Acute (5) Hypertension Status: Acute (6) Noncompliance with medication regimen Status: Acute (7) Renal insufficiency Status: Acute (8) Uncontrolled diabetes mellitus Status: Acute Core Measure Documentation - Palliative Care Palliative Care/ Comfort Measures: Not Applicable - Core Measures Any of the following diagnoses?: none Exam - Constitutional Vitals: Temp Pulse Resp BP Pulse Ox 98.1 F 84 18 126/86 97 09/21/20 08:23 09/21/20 08:23 09/21/20 08:23 09/21/20 08:23 09/21/20 08:23 General appearance: Present: no acute distress, well-nourished - EENT Eyes: Present: PERRL ENT: hearing intact, clear oral mucosa - Neck Neck: Present: supple, normal ROM - Respiratory Respiratory effort: normal Respiratory: bilateral: CTA - Cardiovascular Heart Sounds: Present: S1 & S2. Absent: rub, click - Extremities Extremities: pulses symmetrical, No edema Peripheral Pulses: within normal limits - Abdominal General gastrointestinal: Present: soft, non-tender, non-distended, normal bowel sounds Male genitourinary: Present: normal - Integumentary Integumentary: Present: clear, warm, dry - Musculoskeletal Musculoskeletal: gait normal, strength equal bilaterally - Psychiatric Psychiatric: appropriate mood/affect, intact judgment & insight - Neurologic Neurologic: CNII-XII intact, moves all extremities Plan Activity: advance as tolerated Weight Bearing Status: Weight Bear as Tolerated Diet: diabetic Follow up with: PRIMARY CARE, [Primary Care Provider] - 3-5 Days Prescriptions: amLODIPine 5 mg PO DAILY #30 metFORMIN [Glucophage] 500 mg PO BID #60 tablet Insulin NPH/Regular [NovoLIN 70/30] 20 unit SUB-Q BIDDIAB 30 Days units buPROPion [Wellbutrin] 75 mg PO BID #60
[2020-09-21 12:13] VITALS: BP 146/95
[2020-09-21] MEDS: INSULIN NPH/REGULAR 70/30 INJ SUB-Q SCH (12:44)
--- NOTE | 2020-09-21 20:19 | Progress Note ---
Assessment and Plan Assessment Acute kidney injury Hyperkalemia Hyperglycemic hyperosmolar state Hypertension Recommendations Suspect acute kidney injury was from hypovolemia/HHS Resolved with IV hydration Hyperkalemia resolved with medical management. Suspect this was elevated due to hyperglycemia and hypovolemia. Resolved with IV hydration and glucose control along with medical management concerning potassium lowering therapy. No indication for dialysis Glucose control as per primary Carbohydrate restricted diet Avoid nephrotoxins Monitor input and output Outpatient renal f/u post discharge Subjective Date of service: 09/21/20 Principal diagnosis: VENU Interval history: Notes good urine output Patient was seen for his renal issues Nursing, interdisciplinary and consult notes were reviewed Vitals, input and output, medications and labs were reviewed Objective - Exam Narrative Exam: General: No acute distress HEENT: Oral mucosa moist Neck: Supple, no JVD Chest: Clear to auscultation bilaterally Heart: RRR, S1 and S2, no pericardial rub Abdomen: Soft, nontender, no renal bruit Extremity: No peripheral cyanosis, edema Neurological: Alert, awake, no asterixis Dermatology: No skin rash Psych: No agitation Musculoskeletal: No joint effusion - Vital Signs Vital signs: Vital Signs - 12hr 09/21/20 09/21/20 09/21/20 08:23 10:00 12:13 Temperature 98.1 F 98.0 F Pulse Rate 84 79 83 Pulse Rate [ 88 Radial] Respiratory 18 18 18 Rate Blood Pressure 126/86 146/95 O2 Sat by Pulse 97 98 99 Oximetry - Lab 09/19/20 17:45 09/21/20 08:48 Most recent lab results Calcium 8.4 mg/dL (8.4-10.2) 09/21/20 08:48 Phosphorus 5.50 mg/dL (2.5-4.5) H 09/19/20 22:51 Magnesium 2.80 mg/dL (1.7-2.3) H 09/19/20 22:51 Medications & Allergies - Medications Allergies/Adverse Reactions: Allergies No Known Allergies Allergy (Unverified 09/19/20 17:38) Home Medications: Home Medications Medication Instructions Recorded Confirmed Last Taken Type Chlorthalidone [Thalitone] 25 mg PO QDAY 09/20/20 09/20/20 2 Days Ago History ~09/18/20 Dextroamphetamine/Amphetamine 10 mg PO BID 09/20/20 09/20/20 2 Days Ago History [Dextroamp-Amphetamin 10 mg Tab] ~09/18/20 Omeprazole 10 mg PO BID 09/20/20 09/20/20 2 Days Ago History ~09/18/20 Insulin NPH/Regular [NovoLIN 70/30] 20 unit SUB-Q BIDDIAB 30 Days 09/21/20 Unknown Rx units amLODIPine 5 mg PO DAILY #30 09/21/20 Unknown Rx buPROPion [Wellbutrin] 75 mg PO BID #60 09/21/20 Unknown Rx metFORMIN [Glucophage] 500 mg PO BID #60 tablet 09/21/20 Unknown Rx
== END 2020-09-21 15:42 | disposition home or self-care (01) | DRG 637 ==
LOC: ED 17:20 → CC1 22:40 → 4A 09-20 11:24
PROVIDERS: ADMIT Internal Medicine Geriatric Medicine; ATTEND Hospitalist
DX: E11.10 Type 2 diabetes mellitus with ketoacidosis without coma (principal); N17.0 Acute kidney failure with tubular necrosis; N17.9 Acute kidney failure, unspecified; I10 Essential (primary) hypertension; E11.65 Type 2 diabetes mellitus with hyperglycemia; F90.9 Attention-deficit hyperactivity disorder, unspecified type; Z91.14 Patient's other noncompliance with medication regimen; E87.5 Hyperkalemia
CPT/HCPCS: 36415; 80048; 80053; 80061; 81001; 82805; 82962; 83036; 83735; 84100; 85025; 93005; G0378; J1644; J1815; J7030